=== PATIENT | male | born 1990 | race Caucasian/White ===

== ENCOUNTER 2025-01-17 11:00 | Emergency (ER) | payer MEDICARE, MEDICAID ==
[~2025-01-17] VITALS: Ht 177.8 cm; Wt 78.0 kg
[2025-01-17 11:05] VITALS: O2SAT 98
[2025-01-17] MEDS: PIPERACILLIN/TAZO 3.375G/50ML 50 ML IV ONE (11:55)
[2025-01-17] MEDS: SODIUM CHLORIDE 0.9% (SEPSIS BOLUS) IV ONE (11:55)
[2025-01-17 11:56] LABS: HEMATOCRIT. 44.3 % (42.0-52.0); HEMOGLOBIN. 15.0 g/dL (14.0-18.0); MEAN PLATELET VOLUME 7.4 fl (7.4-10.4); PLATELET 397 x1000/uL (130-400); RED BLOOD CELL COUNT 5.11 mill/uL (4.7-6.1); RED CELL DISTRIBUTION WIDTH 13.8 % (11.6-14.6)
[2025-01-17 12:13] LABS: CREATININE 0.9 mg/dL (0.6-1.3); UREA NITROGEN BLOOD 7 mg/dL (9-23)
[2025-01-17 12:14] LABS: ASPARTATE AMINOTRANSFERASE 19 IU/L (<34); PROTEIN TOTAL 8.7 g/dL (6.0-8.3)
[2025-01-17 12:15] LABS: BILIRUBIN DIRECT 0.2 mg/dL (<=3.0); BILIRUBIN TOTAL 0.7 mg/dL (0.1-1.0)
[2025-01-17 12:31] LABS: INR 1.1
[2025-01-17] MEDS: VANCOMYCIN 1G PREMIX 200 ML IV ONE (12:35)
[2025-01-17 13:45] VITALS: BP 131/78; PULSE 88; RESP 18; TEMP 36.7; O2SAT 98
[2025-01-17 18:16] LABS: LYMPHOCYTES % MANUAL 8.0 % (20.0-50.0); MONOCYTES % MANUAL 13.0 % (2.0-8.0); NEUTROPHILS % MANUAL 79.0 % (45.0-75.0); PLATELET ESTIMATE NORMAL
== END 2025-01-17 14:00 | disposition left against medical advice (07) ==
LOC: ER 11:00 → CANBEDREQ 13:57 → ER 14:00
DX: M79.641 Pain in right hand (principal); F31.9 Bipolar disorder, unspecified
CPT/HCPCS: 99291; 96365; 96367; 80076; 80048; 83605; 85025; 85610; 87040; 36415; 84145; 93005; J2543; J3373; J7030